=== PATIENT | male | born 1950 | race Caucasian/White ===

== ENCOUNTER 2024-06-07 15:07 | Outpatient (RCR) | payer MEDICARE, OTHER, SELFPAY | END 2024-06-07 23:59 | disposition home or self-care (01) | LOC: RST 15:07 | PROVIDERS: ATTENDING PHYSICIAN Internal Medicine Hospice and Palliative Medicine; FAMILY PHYSICIAN Family Medicine | DX: G20.B2 Parkinson's disease with dyskinesia, with fluctuations (principal); R47.1 Dysarthria and anarthria; R47.89 Other speech disturbances; R49.0 Dysphonia | CPT/HCPCS: 92507; 92522 ==

== ENCOUNTER 2024-07-06 14:30 | Outpatient (RCR) | payer MEDICARE, OTHER, SELFPAY | END 2024-07-06 23:59 | disposition home or self-care (01) | LOC: RST 14:30 | PROVIDERS: Internal Medicine Hospice and Palliative Medicine; ATTENDING PHYSICIAN Family Medicine | DX: G20.B2 Parkinson's disease with dyskinesia, with fluctuations (principal); R47.1 Dysarthria and anarthria; R47.89 Other speech disturbances; R49.0 Dysphonia | CPT/HCPCS: 92507 ==

== ENCOUNTER 2024-07-08 14:25 | Outpatient (RCR) | payer MEDICARE, OTHER, SELFPAY | END 2024-07-08 15:40 | disposition home or self-care (01) | LOC: RST 14:25 | PROVIDERS: ATTENDING PHYSICIAN Family Medicine | DX: G20.B2 Parkinson's disease with dyskinesia, with fluctuations (principal); R47.1 Dysarthria and anarthria; R49.0 Dysphonia | CPT/HCPCS: 92507 ==

== ENCOUNTER → 2024-09-21 07:23 | Outpatient (REF) | payer MEDICARE, OTHER, SELFPAY | LOC: RAD 07:23 | PROVIDERS: ATTENDING PHYSICIAN Family Medicine; FAMILY PHYSICIAN Family Medicine | DX: R10.33 Periumbilical pain (principal); R22.9 Localized swelling, mass and lump, unspecified | CPT/HCPCS: 76700 ==

== ENCOUNTER → 2024-11-17 15:18 | Outpatient (REF) | payer MEDICARE, OTHER, SELFPAY | LOC: RAD 15:18 | PROVIDERS: ATTENDING PHYSICIAN Family Medicine; FAMILY PHYSICIAN Family Medicine | DX: R40.4 Transient alteration of awareness (principal); R56.9 Unspecified convulsions | CPT/HCPCS: 70450 ==